=== PATIENT | female | born 1945 | race Caucasian/White ===

== ENCOUNTER 2017-12-27 05:25 | Inpatient (IN) ==
[2017-12-27] MEDS ORDERED: MORPHINE 2 MG/1 ML SYRINGE IV STA (05:29)
[2017-12-27] MEDS ORDERED: SODIUM CHLORIDE 0.9% 2,000 ML IV STA (05:29)
[2017-12-27] MEDS ORDERED: ONDANSETRON 4 MG/2 ML VIAL IV STA (05:29)
[2017-12-27] MEDS ORDERED: SODIUM CHLORIDE 0.9% 1,000 ML IV PRN (05:52)
[2017-12-27 06:01] LABS: Basophils % 0.3 % (0.0-0.8); Eosinophils # 0.1 10*3/uL (0.0-0.87); Eosinophils % 0.6 % (0.00-10.9); Hemoglobin 11.6 GM/DL (12.0-16.0); Immature Granulocytes % 2.2 %; Immature Granulocytes Absolute 0.17 #; Lymphocytes # 1.6 10*3/uL (1.4-4.0); Lymphocytes % 20.3 % (21.3-54.2); Mean Corpuscular HGB Conc 31.4 GM/DL (32-36); Mean Corpuscular Hemoglobin 30 PG (27-34); Mean Corpuscular Volume 96.1 FL (87-102); Mean Platelet Volume 8.9 FL (9.6-12.0); Monocytes % 0.5 % (1.7-12.7); Neutrophils # 5.9 10*3/uL (1.4-7.4); Neutrophils % 76.1 % (38.7-73.9); Platelet Count 406 T/CUMM (130-400); Red Blood Count 3.85 MC/CUMM (3.8-5.5); Red Cell Distribution Width 13.4 % (9.3-17.3); White Blood Count 7.8 T/CUMM (4-12)
[2017-12-27] MEDS ORDERED: PIPERACILLIN/TAZOBACTAM 3,375 MG in SODIUM CHLORIDE 0.9% 100 ML IV STA (06:21)
[2017-12-27 06:24] LABS: Band Neutrophils 4 % (0-10); Hypochromasia 2+; Lymphocytes 13 % (20-55); Microcytosis 2+; Platelet Estimate Increased; Segmented Neutrophils 81 % (50-85); Total Cells Counted 100
[2017-12-27] MEDS ORDERED: ONDANSETRON 4 MG/2 ML VIAL ONE (06:24)
[2017-12-27] MEDS ORDERED: PIPERACILLIN/TAZOBACTAM 3,375 MG VIAL IV ONE (06:24)
[2017-12-27] MEDS ORDERED: SODIUM CHLORIDE 0.9% 100 ML IV ONE (06:25)
[2017-12-27 06:31] LABS: Alanine Aminotransferase 39 U/L (13-56); Albumin 2.9 G/DL (3.4-5.0); Alkaline Phosphatase 125 U/L (45-117); Amylase 254 U/L (25-115); Aspartate Amino Transferase 53 U/L (0-37); Blood Urea Nitrogen 24 MG/DL (7-18); Calcium 8.7 MG/DL (8.5-10.1); Glucose 318 MG/DL (74-106); Osmolality,Calculated 285.1 MOS/KG (273-304); Potassium 4.3 MMOL/L (3.5-5.1); Sodium 135 MMOL/L (136-145); Total Protein 6.6 G/DL (6.4-8.3)
[2017-12-27 07:00] LABS: Lactic Acid 6.6 MMOL/L (0.4-2.0)
[2017-12-27 07:05] LABS: Apearance,Urine Slightly Hazy (Clear); Bacteria,Urine Occasional /HPF (Few); Bilirubin,Urine Negative (Negative); Blood, Urine Moderate mg/dL (Negative); Glucose,Urine (UA) 50 mg/dL (Negative); Hyaline Casts,Urine 1 /LPF (0-3); Ketones,Urine Negative (Negative); Mucus,Urine Occasional /LPF (Occasional); Nitrite,Urine Negative (Negative); Protein,Urine 100 MG/DL; RBC,Urine 26 /HPF (0-4); Squamous Epithelial Cell,Urine Occasional /HPF (0-10); Urine Color Yellow (Yellow); Urine Specific Gravity 1.021 (1.001-1.035); Urine Urobilinogen < 2.0 EU/DL (0.2-1.0); WBC,Urine 72 /HPF (0-6)
[2017-12-27] MEDS ORDERED: diphenhydrAMINE CAP 25 MG CAPSULE PO PRN (08:13)
[2017-12-27] MEDS ORDERED: DOCUSATE SODIUM 100 MG CAPSULE PO PRN (08:13)
[2017-12-27] MEDS ORDERED: ACETAMINOPHEN 325 MG TABLET PO PRN (08:13)
[2017-12-27] MEDS ORDERED: guaiFENesin/DM ER 600-30 MG TABLET PO PRN (08:13)
[2017-12-27] MEDS ORDERED: SODIUM CHLORIDE 0.9% 1,000 ML IV STA (08:29)
[2017-12-27] MEDS ORDERED: SODIUM CHLORIDE 0.9% 1,000 ML IV SCH (08:30)
[2017-12-27 08:49] LABS: ABG Oxygen Saturation 96.3 % (95-100); ABG PCO2 40.1 MM HG (35-48); ABG TCO2 14.5 MMOL/L (23-27); Allen Test Positive
[2017-12-27 08:56] LABS: Troponin I Only 0.021 NG/ML (0.00-0.045)
[2017-12-27 08:58] LABS: ABG PH 7.197 (7.35-7.45)
[2017-12-27] MEDS ORDERED: NOREPINEPHRINE 4 MG/4 ML VIAL IV ONE ×2 (09:05→09:07)
[2017-12-27] MEDS: NOREPINEPHRINE 8 MG in SODIUM CHLORIDE 0.9% 242 ML IV PRN ×3 (09:22→20:17)
[2017-12-27] MEDS: SODIUM BICARB INJ 100 MEQ in DEXTROSE 5% 900 ML IV SCH ×2 (10:30→18:08)
[2017-12-27] MEDS: CIPROFLOXACIN INJ 400 MG in PREMIX 1 EACH IV SCH (10:37)
[2017-12-27] MEDS: metroNIDAZOLE INJ 500 MG in PREMIX 1 EACH IV SCH ×4 (10:37→21:22)
[2017-12-27 11:57] LABS: INR 1.2; PT Patient Result 12.8 SECS
[2017-12-27 11:59] LABS: Troponin I Only 0.347 NG/ML (0.00-0.045)
[2017-12-27] MEDS ORDERED: VANCOMYCIN 50 MG/ML 60 ML/BOTTLE PO SCH (12:00)
[2017-12-27] MEDS: ONDANSETRON 4 MG/2 ML VIAL IV PRN ×2 (14:49→19:40)
[2017-12-27 15:57] LABS: Basophils # 0.1 10*3/uL (0.0-0.2); Basophils % 0.2 % (0.0-0.8); Hematocrit 35.1 VOL% (35.7-47.0); Hemoglobin 11.3 GM/DL (12.0-16.0); Immature Granulocytes % 0.8 %; Immature Granulocytes Absolute 0.24 #; Lymphocytes # 0.4 10*3/uL (1.4-4.0); Lymphocytes % 1.3 % (21.3-54.2); Mean Corpuscular HGB Conc 32.2 GM/DL (32-36); Mean Corpuscular Hemoglobin 30 PG (27-34); Mean Corpuscular Volume 92.9 FL (87-102); Mean Platelet Volume 8.6 FL (9.6-12.0); Monocytes # 1.3 10*3/uL (0.11-0.8); Monocytes % 4.4 % (1.7-12.7); Neutrophils # 26.8 10*3/uL (1.4-7.4); Neutrophils % 93.3 % (38.7-73.9); Platelet Count 357 T/CUMM (130-400); Red Blood Count 3.78 MC/CUMM (3.8-5.5); Red Cell Distribution Width 13.6 % (9.3-17.3); White Blood Count 28.8 T/CUMM (4-12)
[2017-12-27 16:29] LABS: Albumin 2.3 G/DL (3.4-5.0); Bilirubin,Total 0.7 MG/DL (0.2-1.0); CKMB % 4.2 %; Calcium 7.3 MG/DL (8.5-10.1); Lactic Acid 3.2 MMOL/L (0.4-2.0); Potassium 4.2 MMOL/L (3.5-5.1); Total Protein 5.1 G/DL (6.4-8.3)
[2017-12-27 16:48] LABS: Troponin I Only 0.41 NG/ML (0.00-0.045)
[2017-12-27 17:05] LABS: ABG Base Excess -7.6 MMOL/L (-2.5-2.5); ABG HCO3 18.2 MMOL/L (20-26); ABG Oxygen Saturation 93.1 % (95-100); ABG PH 7.331 (7.35-7.45); ABG PO2 69.2 MM HG (80-95); ABG TCO2 15.8 MMOL/L (23-27)
[2017-12-27 19:48] LABS: Band Neutrophils 2 % (0-10); Lymphocytes 2 % (20-55); Platelet Estimate Normal; Segmented Neutrophils 92 % (50-85); Total Cells Counted 100
[2017-12-27 19:49] LABS: Polychromasia Slight
[2017-12-27] MEDS ORDERED: SODIUM CHLORIDE 0.9% 500 ML IV ONE (21:35)
[2017-12-27] MEDS: NOREPINEPHRINE 16 MG in SODIUM CHLORIDE 0.9% 484 ML IV PRN (23:21)
[2017-12-28] MEDS: MORPHINE 4 MG/1 ML VIAL IV PRN ×2 (01:16→04:45)
[2017-12-28] MEDS: SODIUM BICARB INJ 100 MEQ in DEXTROSE 5% 900 ML IV SCH ×4 (02:01→23:25)
[2017-12-28] MEDS ORDERED: SODIUM CHLORIDE 0.9% 500 ML IV ONE (02:48)
[2017-12-28] MEDS: CIPROFLOXACIN INJ 400 MG in PREMIX 1 EACH IV SCH (03:14)
[2017-12-28] MEDS: PANTOPRAZOLE INJ 200 MG in SODIUM CHLORIDE 0.9% 250 ML IV SCH (03:22)
[2017-12-28 03:41] LABS: ABG Base Excess -11.9 MMOL/L (-2.5-2.5); ABG HCO3 13.6 MMOL/L (20-26); ABG Oxygen Saturation 92.4 % (95-100); ABG PCO2 29.5 MM HG (35-48); ABG PH 7.281 (7.35-7.45); ABG PO2 77.2 MM HG (80-95); ABG TCO2 14.5 MMOL/L (23-27); Allen Test Positive
[2017-12-28 04:04] LABS: Basophils % 0.1 % (0.0-0.8); Hematocrit 28.4 VOL% (35.7-47.0); Immature Granulocytes % 0.4 %; Immature Granulocytes Absolute 0.07 #; Lymphocytes # 0.5 10*3/uL (1.4-4.0); Lymphocytes % 2.7 % (21.3-54.2); Mean Corpuscular HGB Conc 31.7 GM/DL (32-36); Mean Corpuscular Hemoglobin 30 PG (27-34); Mean Corpuscular Volume 95.9 FL (87-102); Mean Platelet Volume 9.2 FL (9.6-12.0); Monocytes # 0.9 10*3/uL (0.11-0.8); Monocytes % 5.2 % (1.7-12.7); Neutrophils # 15.5 10*3/uL (1.4-7.4); Neutrophils % 91.6 % (38.7-73.9); Platelet Count 266 T/CUMM (130-400); Red Blood Count 2.96 MC/CUMM (3.8-5.5); Red Cell Distribution Width 13.8 % (9.3-17.3); White Blood Count 16.9 T/CUMM (4-12)
[2017-12-28 04:22] LABS: PT Patient Result 20.9 SECS
[2017-12-28 04:24] LABS: Partial Thromboplastin Time 48.8 SECS (0-40)
[2017-12-28 04:26] LABS: Lactic Acid 9.6 MMOL/L (0.4-2.0)
[2017-12-28 04:35] LABS: CKMB % 2.7 %; Troponin I Only 0.273 NG/ML (0.00-0.045)
[2017-12-28 04:48] LABS: Alanine Aminotransferase 1806 U/L (13-56); Albumin 1.7 G/DL (3.4-5.0); Alkaline Phosphatase 96 U/L (45-117); Aspartate Amino Transferase 2624 U/L (0-37); Blood Urea Nitrogen 36 MG/DL (7-18); Cholesterol < 50 MG/DL (50-200); Glucose 80 MG/DL (74-106); HDL Cholesterol 32 MG/DL (40-60); Osmolality,Calculated 281.7 MOS/KG (273-304); Risk Ratio 1.56; Sodium 138 MMOL/L (136-145); Total Protein 3.8 G/DL (6.4-8.3); Triglycerides 53 MG/DL (2-150); VLDL CHOLESTEROL 10.6 MG/DL
[2017-12-28] MEDS ORDERED: SODIUM CHLORIDE 0.9% 1,000 ML IV PRN ×2 (05:34→07:45)
[2017-12-28] MEDS ORDERED: SODIUM BICARBONATE 50 MEQ/50 ML SYRINGE IV ONE ×3 (05:42→10:41)
[2017-12-28 06:12] LABS: Band Neutrophils 17 % (0-10); Burr Cells Slight; Giant Platelets Few; Hypochromasia 1+; Lymphocytes 3 % (20-55); Ovalocytes Slight; Platelet Estimate Adequate; Segmented Neutrophils 76 % (50-85); Total Cells Counted 100
[2017-12-28] MEDS: NOREPINEPHRINE 16 MG in SODIUM CHLORIDE 0.9% 484 ML IV PRN ×3 (07:10→20:41)
[2017-12-28 07:13] LABS: Albumin 1.7 G/DL (3.4-5.0); Bilirubin,Direct 0.34 MG/DL (0.0-0.20); Bilirubin,Indirect 0.7 MG/DL (0.0-1.0); Total Protein 3.7 G/DL (6.4-8.3)
[2017-12-28] MEDS ORDERED: cefOXitin 2,000 MG in SYRINGE 1 EACH IV ONE (07:38)
[2017-12-28 07:47] LABS: Basophils % 0.3 % (0.0-0.8); Eosinophils # 0.7 10*3/uL (0.0-0.87); Eosinophils % 5.4 % (0.00-10.9); Hematocrit 29.1 VOL% (35.7-47.0); Hemoglobin 9.1 GM/DL (12.0-16.0); Immature Granulocytes Absolute 0.13 #; Lymphocytes # 0.6 10*3/uL (1.4-4.0); Lymphocytes % 4.2 % (21.3-54.2); Mean Corpuscular HGB Conc 31.3 GM/DL (32-36); Mean Corpuscular Hemoglobin 30 PG (27-34); Mean Platelet Volume 9.2 FL (9.6-12.0); Monocytes # 0.4 10*3/uL (0.11-0.8); Monocytes % 2.8 % (1.7-12.7); Neutrophils # 11.6 10*3/uL (1.4-7.4); Neutrophils % 86.3 % (38.7-73.9); Platelet Count 259 T/CUMM (130-400); Red Blood Count 3.03 MC/CUMM (3.8-5.5); Red Cell Distribution Width 13.8 % (9.3-17.3); White Blood Count 13.5 T/CUMM (4-12)
[2017-12-28] MEDS ORDERED: SODIUM CHLORIDE 0.9% 1,000 ML IV ONE ×4 (07:48→17:45)
[2017-12-28] MEDS ORDERED: DOPamine 800 MG/250 ML PREMIX IV ONE (07:58)
[2017-12-28] MEDS: DOPamine 800 MG/250 ML PREMIX IV PRN ×2 (07:59→19:06)
[2017-12-28 08:03] LABS: Fibrinogen Quant Value 229 MG% (200-400)
[2017-12-28 08:12] LABS: INR 2.3
[2017-12-28 08:18] LABS: PT Patient Result 23.5 SECS; Partial Thromboplastin Time 48.6 SECS (0-40)
[2017-12-28 08:34] LABS: Band Neutrophils 20 % (0-10); Burr Cells Slight; Giant Platelets Few; Hypochromasia Slight; Lymphocytes 7 % (20-55); Myelocytes 3 %; Ovalocytes Slight; Platelet Estimate Adequate; Segmented Neutrophils 69 % (50-85); Total Cells Counted 100
[2017-12-28] MEDS ORDERED: ENOXAPARIN 30 MG/0.3 ML SYRINGE SUBCUT SCH (09:00)
[2017-12-28 09:31] LABS: ABG Base Excess -6.8 MMOL/L (-2.5-2.5); ABG HCO3 18.8 MMOL/L (20-26); ABG Oxygen Saturation 98.8 % (95-100); ABG PCO2 36.5 MM HG (35-48); ABG PH 7.319 (7.35-7.45); ABG TCO2 17.8 MMOL/L (23-27); Glucose Heart Surgery 101 MG/DL (74-106); Hematocrit Heart Surgery 22.3 PERCENT (37-47); Hemoglobin Heart Surgery 7.1 G/DL (12.0-16.0); Potassium Heart/CVR 4.2 MMOL/L (3.5-5.1)
[2017-12-28] MEDS ORDERED: PHENYLEPHRINE DRIP 40 MG/250 ML PREMIX IV ONE (09:56)
[2017-12-28 10:08] LABS: ABG Base Excess -10.1 MMOL/L (-2.5-2.5); ABG HCO3 16.2 MMOL/L (20-26); ABG Oxygen Saturation 98.1 % (95-100); ABG PCO2 48.4 MM HG (35-48); ABG TCO2 17.5 MMOL/L (23-27); Glucose Heart Surgery 84 MG/DL (74-106); Hematocrit Heart Surgery 18.1 PERCENT (37-47); Hemoglobin Heart Surgery 5.7 G/DL (12.0-16.0); Ionized Calcium Arterial 0.86 MMOL/L (1.21-1.46); PCO2 Patient Temp Arterial 48.4 MMHG; PH Patient Temp Arterial 7.172; Patient Temperature 37 CELCIUS; Potassium Heart/CVR 3.9 MMOL/L (3.5-5.1); Sodium Heart/CVR 141 MMOL/L (135-145)
[2017-12-28] MEDS ORDERED: CALCIUM CHLORIDE 1,000 MG/10 ML VIAL IV ONE (10:11)
[2017-12-28] MEDS ORDERED: MIDAZOLAM 2 MG/2 ML VIAL ONE (10:11)
[2017-12-28] MEDS ORDERED: ALBUMIN 5% 12.5 GM/250 ML VIAL IV ONE (10:11)
[2017-12-28] MEDS ORDERED: SEVOFLURANE 1 UNIT/15 MINUTE INH ONE (10:11)
[2017-12-28] MEDS ORDERED: fentaNYL 100 MCG/2 ML VIAL ONE (10:11)
[2017-12-28 10:12] LABS: ABG PH 7.172 (7.35-7.45)
[2017-12-28] MEDS ORDERED: VECURONIUM 10 MG VIAL IV ONE (10:12)
[2017-12-28] MEDS ORDERED: SUCCINYLCHOLINE 200 MG/10 ML VIAL ONE (10:12)
[2017-12-28] MEDS ORDERED: ETOMIDATE 40 MG/20 ML VIAL IV ONE (10:12)
[2017-12-28] MEDS ORDERED: SODIUM CHLORIDE 0.9% 250 ML IV ONE (10:12)
[2017-12-28] MEDS ORDERED: EPINEPHrine 1 MG/ML VIAL ONE (10:12)
[2017-12-28] MEDS ORDERED: KETAMINE 500 MG/10 ML VIAL ONE (10:17)
[2017-12-28] MEDS: metroNIDAZOLE INJ 500 MG in PREMIX 1 EACH IV SCH ×4 (10:37→23:10)
[2017-12-28] MEDS: PHENYLEPHRINE DRIP 40 MG/250 ML PREMIX IV PRN ×2 (10:40→12:33)
[2017-12-28] MEDS: PROPOFOL 1,000 MG/100 ML BOTTLE IV SCH (10:46)
[2017-12-28 10:50] LABS: Basophils % 0.2 % (0.0-0.8); Eosinophils # 0.3 10*3/uL (0.0-0.87); Eosinophils % 5.1 % (0.00-10.9); Hematocrit 18.9 VOL% (35.7-47.0); Immature Granulocytes % 0.8 %; Immature Granulocytes Absolute 0.05 #; Lymphocytes # 0.4 10*3/uL (1.4-4.0); Lymphocytes % 6.9 % (21.3-54.2); Mean Corpuscular HGB Conc 30.7 GM/DL (32-36); Mean Corpuscular Hemoglobin 30 PG (27-34); Mean Corpuscular Volume 96.9 FL (87-102); Mean Platelet Volume 9.1 FL (9.6-12.0); Monocytes # 0.3 10*3/uL (0.11-0.8); Monocytes % 4.2 % (1.7-12.7); Neutrophils # 5.3 10*3/uL (1.4-7.4); Neutrophils % 82.8 % (38.7-73.9); Platelet Count 148 T/CUMM (130-400); Red Blood Count 1.95 MC/CUMM (3.8-5.5); White Blood Count 6.4 T/CUMM (4-12)
[2017-12-28 10:55] LABS: Hemoglobin 5.8 GM/DL (12.0-16.0)
[2017-12-28 10:58] LABS: PT Patient Result 20.4 SECS
[2017-12-28 11:01] LABS: Partial Thromboplastin Time 45.1 SECS (0-40)
[2017-12-28 11:10] LABS: Band Neutrophils 13 % (0-10); Burr Cells Slight; Hypochromasia 1+; Lymphocytes 8 % (20-55); Microcytosis Slight; Myelocytes 1 %; Ovalocytes Slight; Platelet Estimate Normal; Segmented Neutrophils 76 % (50-85); Total Cells Counted 100
[2017-12-28 11:41] LABS: Alanine Aminotransferase 2781 U/L (13-56); Albumin 1.8 G/DL (3.4-5.0); Alkaline Phosphatase 77 U/L (45-117); Aspartate Amino Transferase 4868 U/L (0-37); Blood Urea Nitrogen 33 MG/DL (7-18); Glucose 103 MG/DL (74-106); Osmolality,Calculated 294.7 MOS/KG (273-304); Potassium 4.3 MMOL/L (3.5-5.1); Sodium 145 MMOL/L (136-145); Total Protein 3.4 G/DL (6.4-8.3)
[2017-12-28 11:48] LABS: Calcium 5.1 MG/DL (8.5-10.1)
[2017-12-28] MEDS ORDERED: CALCIUM GLUCONATE 2,000 MG in SODIUM CHLORIDE 0.9% 100 ML IV ONE (12:36)
[2017-12-28] MEDS: ALBUTEROL/IPRATROPIUM 3 ML NEB RESP TX SCH ×2 (12:40→19:28)
[2017-12-28] MEDS: PHENYLEPHRINE INJ 160 MG in SODIUM CHLORIDE 0.9% 234 ML IV PRN ×2 (14:10→21:01)
[2017-12-28 14:11] LABS: ABG Base Excess -13.5 MMOL/L (-2.5-2.5); ABG HCO3 14.4 MMOL/L (20-26); ABG Oxygen Saturation 98.6 % (95-100); ABG PCO2 41.6 MM HG (35-48); ABG TCO2 13.5 MMOL/L (23-27)
[2017-12-28 14:12] LABS: Basophils # 0.1 10*3/uL (0.0-0.2); Basophils % 0.8 % (0.0-0.8); Eosinophils # 0.6 10*3/uL (0.0-0.87); Eosinophils % 7.5 % (0.00-10.9); Hematocrit 44.6 VOL% (35.7-47.0); Hemoglobin 14.6 GM/DL (12.0-16.0); Immature Granulocytes % 1.3 %; Lymphocytes # 0.3 10*3/uL (1.4-4.0); Lymphocytes % 3.8 % (21.3-54.2); Mean Corpuscular HGB Conc 32.7 GM/DL (32-36); Mean Corpuscular Hemoglobin 30 PG (27-34); Mean Corpuscular Volume 92.9 FL (87-102); Mean Platelet Volume 9.4 FL (9.6-12.0); Monocytes # 0.2 10*3/uL (0.11-0.8); Monocytes % 2.9 % (1.7-12.7); Neutrophils # 6.4 10*3/uL (1.4-7.4); Neutrophils % 83.7 % (38.7-73.9); Platelet Count 115 T/CUMM (130-400); Red Cell Distribution Width 14.6 % (9.3-17.3); White Blood Count 7.7 T/CUMM (4-12)
[2017-12-28 14:16] LABS: ABG PH 7.171 (7.35-7.45)
[2017-12-28 14:21] LABS: PT Patient Result 20.1 SECS
[2017-12-28 14:28] LABS: Band Neutrophils 10 % (0-10); Eosinophils 6 % (0-10); Lymphocytes 5 % (20-55); Segmented Neutrophils 76 % (50-85)
[2017-12-28 14:29] LABS: Burr Cells Slight; Hypochromasia 1+; Microcytosis Slight; Platelet Estimate Normal; Total Cells Counted 100
[2017-12-28 14:59] LABS: Albumin 2.2 G/DL (3.4-5.0); Bilirubin,Total 1.3 MG/DL (0.2-1.0); Potassium 3.8 MMOL/L (3.5-5.1); Total Protein 4.4 G/DL (6.4-8.3)
[2017-12-29] MEDS: ALBUTEROL/IPRATROPIUM 3 ML NEB RESP TX SCH ×4 (00:10→19:30)
[2017-12-29] MEDS: CIPROFLOXACIN INJ 400 MG in PREMIX 1 EACH IV SCH ×2 (00:15→15:30)
[2017-12-29 01:06] LABS: Basophils # 0.1 10*3/uL (0.0-0.2); Basophils % 0.8 % (0.0-0.8); Hematocrit 39.6 VOL% (35.7-47.0); Hemoglobin 13.7 GM/DL (12.0-16.0); Immature Granulocytes % 1.4 %; Immature Granulocytes Absolute 0.17 #; Lymphocytes # 0.5 10*3/uL (1.4-4.0); Lymphocytes % 4.5 % (21.3-54.2); Mean Corpuscular HGB Conc 34.6 GM/DL (32-36); Mean Corpuscular Hemoglobin 30 PG (27-34); Mean Corpuscular Volume 87.8 FL (87-102); Mean Platelet Volume 9.1 FL (9.6-12.0); Monocytes # 0.3 10*3/uL (0.11-0.8); Monocytes % 2.2 % (1.7-12.7); NRBC # 0.03 10*3/uL; Neutrophils # 10.9 10*3/uL (1.4-7.4); Neutrophils % 91.1 % (38.7-73.9); Platelet Count 91 T/CUMM (130-400); Red Blood Count 4.51 MC/CUMM (3.8-5.5); Red Cell Distribution Width 15.6 % (9.3-17.3)
[2017-12-29 01:13] LABS: INR 2.4
[2017-12-29 01:20] LABS: Lactic Acid 5.3 MMOL/L (0.4-2.0); PT Patient Result 24.9 SECS; Partial Thromboplastin Time 44.6 SECS (0-40)
[2017-12-29 01:42] LABS: Albumin 1.7 G/DL (3.4-5.0); Bilirubin,Total 1.6 MG/DL (0.2-1.0); Osmolality,Calculated 290.1 MOS/KG (273-304); Potassium 3.8 MMOL/L (3.5-5.1); Total Protein 3.5 G/DL (6.4-8.3)
[2017-12-29 01:45] LABS: Calcium 5.4 MG/DL (8.5-10.1)
[2017-12-29 01:59] LABS: Band Neutrophils 41 % (0-10); Lymphocytes 8 % (20-55); Metamyelocytes 3 %; Myelocytes 1 %; Segmented Neutrophils 34 % (50-85); Total Cells Counted 100
[2017-12-29 02:00] LABS: Anisocytosis 1+; Poikilocytosis 1+
[2017-12-29 02:05] LABS: ABG Base Excess -0.9 MMOL/L (-2.5-2.5); ABG HCO3 23.7 MMOL/L (20-26); ABG Oxygen Saturation 97.7 % (95-100); ABG PCO2 51.8 MM HG (35-48); ABG PH 7.314 (7.35-7.45)
[2017-12-29] MEDS ORDERED: CALCIUM GLUCONATE 2,000 MG in SODIUM CHLORIDE 0.9% 100 ML IV ONE ×2 (02:16→13:46)
[2017-12-29] MEDS ORDERED: SODIUM CHLORIDE 0.9% 1,000 ML IV PRN (02:17)
[2017-12-29] MEDS: NOREPINEPHRINE 16 MG in SODIUM CHLORIDE 0.9% 484 ML IV PRN ×3 (03:21→16:45)
[2017-12-29] MEDS: PHENYLEPHRINE INJ 160 MG in SODIUM CHLORIDE 0.9% 234 ML IV PRN ×3 (03:31→18:23)
[2017-12-29] MEDS: DOPamine 800 MG/250 ML PREMIX IV PRN ×3 (03:50→22:45)
[2017-12-29] MEDS: PANTOPRAZOLE INJ 200 MG in SODIUM CHLORIDE 0.9% 250 ML IV SCH (04:30)
[2017-12-29] MEDS: SODIUM BICARB INJ 100 MEQ in DEXTROSE 5% 900 ML IV SCH ×3 (06:11→20:13)
[2017-12-29 06:46] LABS: Lactic Acid 4.9 MMOL/L (0.4-2.0)
[2017-12-29 09:29] LABS: Hematocrit 35.9 VOL% (35.7-47.0); Hemoglobin 12.5 GM/DL (12.0-16.0); Platelet Count 174 T/CUMM (130-400)
[2017-12-29] MEDS: metroNIDAZOLE INJ 500 MG in PREMIX 1 EACH IV SCH ×4 (09:49→20:58)
[2017-12-29] MEDS ORDERED: DIGOXIN 0.5 MG/2 ML AMP IV ONE ×2 (10:00→13:48)
[2017-12-29] MEDS: PROPOFOL 1,000 MG/100 ML BOTTLE IV SCH (11:47)
[2017-12-29] MEDS: MORPHINE 4 MG/1 ML VIAL IV PRN (21:10)
[2017-12-30] MEDS: NOREPINEPHRINE 16 MG in SODIUM CHLORIDE 0.9% 234 ML IV PRN ×2 (00:26→08:25)
[2017-12-30] MEDS: ALBUTEROL/IPRATROPIUM 3 ML NEB RESP TX SCH ×3 (00:54→12:21)
[2017-12-30] MEDS: PHENYLEPHRINE INJ 160 MG in SODIUM CHLORIDE 0.9% 234 ML IV PRN ×2 (01:06→08:54)
[2017-12-30] MEDS: SODIUM BICARB INJ 100 MEQ in DEXTROSE 5% 900 ML IV SCH (02:56)
[2017-12-30] MEDS: PANTOPRAZOLE INJ 200 MG in SODIUM CHLORIDE 0.9% 250 ML IV SCH (03:39)
[2017-12-30 03:40] LABS: ABG Base Excess 1.2 MMOL/L (-2.5-2.5); ABG HCO3 23.1 MMOL/L (20-26); ABG Oxygen Saturation 97.1 % (95-100); ABG PCO2 28.9 MM HG (35-48); ABG PO2 92.7 MM HG (80-95)
[2017-12-30 03:46] LABS: Hematocrit 38.2 VOL% (35.7-47.0); Hemoglobin 13.2 GM/DL (12.0-16.0); Immature Granulocytes % 2.3 %; Immature Granulocytes Absolute 0.55 #; Lymphocytes # 0.7 10*3/uL (1.4-4.0); Lymphocytes % 2.8 % (21.3-54.2); Mean Corpuscular HGB Conc 34.6 GM/DL (32-36); Mean Corpuscular Hemoglobin 30 PG (27-34); Mean Platelet Volume 10.9 FL (9.6-12.0); Monocytes # 0.2 10*3/uL (0.11-0.8); Neutrophils % 93.9 % (38.7-73.9); Platelet Count 112 T/CUMM (130-400); Red Blood Count 4.34 MC/CUMM (3.8-5.5); Red Cell Distribution Width 15.3 % (9.3-17.3); White Blood Count 23.5 T/CUMM (4-12)
[2017-12-30 04:04] LABS: INR 2.6
[2017-12-30 04:09] LABS: Partial Thromboplastin Time 63.6 SECS (0-40)
[2017-12-30 04:34] LABS: Albumin 1.4 G/DL (3.4-5.0); Bilirubin,Direct 1.39 MG/DL (0.0-0.20); Bilirubin,Total 2.4 MG/DL (0.2-1.0); Osmolality,Calculated 279.7 MOS/KG (273-304); Potassium 3.5 MMOL/L (3.5-5.1)
[2017-12-30 04:41] LABS: Calcium 5.3 MG/DL (8.5-10.1)
[2017-12-30] MEDS ORDERED: MAGNESIUM SULF RIDER 2 GM in PREMIX 1 EACH IV ONE (05:05)
[2017-12-30] MEDS ORDERED: CALCIUM GLUCONATE 2,000 MG in SODIUM CHLORIDE 0.9% 100 ML IV ONE (05:05)
[2017-12-30] MEDS ORDERED: POTASSIUM CHLORIDE RIDER 20 MEQ in PREMIX 1 EACH IV PRN (05:06)
[2017-12-30] MEDS ORDERED: POTASSIUM CHLORIDE RIDER 10 MEQ in PREMIX 1 EACH IV PRN (05:06)
[2017-12-30] MEDS ORDERED: CALCIUM GLUCONATE 1,000 MG/10 ML VIAL IV ONE (05:12)
[2017-12-30 05:26] LABS: Band Neutrophils 11 % (0-10); Eosinophils 1 % (0-10); Lymphocytes 2 % (20-55); Myelocytes 1 %; Segmented Neutrophils 78 % (50-85); Total Cells Counted 100
[2017-12-30 05:27] LABS: Hypochromasia 1+; Microcytosis Slight; Ovalocytes Slight
[2017-12-30 05:28] LABS: Platelet Estimate Adequate
[2017-12-30 08:31] LABS: ABG Base Excess -1.6 MMOL/L (-2.5-2.5); ABG Oxygen Saturation 95.7 % (95-100); ABG PCO2 28.9 MM HG (35-48); ABG PH 7.467 (7.35-7.45); ABG PO2 84.6 MM HG (80-95); ABG TCO2 18.1 MMOL/L (23-27)
[2017-12-30] MEDS: DOPamine 800 MG/250 ML PREMIX IV PRN (08:38)
[2017-12-30 13:00] VITALS: BP 65/42
[2017-12-31] MEDS ORDERED: PANTOPRAZOLE 40 MG VIAL IV SCH (21:00)
== END 2017-12-30 11:36 | disposition expired | DRG 853 ==
LOC: N.ED 05:25 → SUATTDRO 08:13 → N.EDINP 08:13 → N.CC 08:43
PROVIDERS: ADMIT Internal Medicine; ATTEND Internal Medicine